=== PATIENT | male | born 2000 | race Caucasian/White ===

== ENCOUNTER 2024-07-22 16:32 | Emergency (ER) | payer BC ==
[~2024-07-22] VITALS: Ht 182.9 cm; Wt 65.8 kg
[2024-07-22 16:44] VITALS: TEMP 98.7
[2024-07-22] MEDS: KETOROLAC TROMETHAMINE 30 MG/ML VIAL IM STA (17:25)
[2024-07-22 17:38] LABS: BASOPHILS % 0.7 % (0.0-1.0); EOSINOPHILS # (AUTO) 0.1 (0.0-0.4); EOSINOPHILS % 1.2 % (0.0-6.0); HEMATOCRIT 42.5 % (38.2-49.6); HEMOGLOBIN 14.7 g/dL (14.0-18.0); LYMPHOCYTES # (AUTO) 0.8 (1.0-3.2); LYMPHOCYTES % 20.2 % (18.0-39.1); MEAN CORPUSCULAR HEMOGLOBIN 32.2 pg (28-32); MEAN CORPUSCULAR HGB CONC 34.6 g/dL (31-35); MONOCYTES # (AUTO) 0.3 (0.2-0.8); MONOCYTES % 7.7 % (4.4-11.3); NEUTROPHILS # (AUTO) 2.9 (2.1-6.9); NEUTROPHILS % 68.8 % (38.7-80.0); PLATELET COUNT 243 x10e3/uL (140-360); RED BLOOD COUNT 4.57 x10e6/uL (4.3-5.7); RED CELL DISTRIBUTION WIDTH 11.7 % (11.7-14.4); WHITE BLOOD COUNT 4.15 x10e3/uL (4.8-10.8)
[2024-07-22 17:59] LABS: ALBUMIN/GLOBULIN RATIO 1.9 (0.8-2.0); ANION GAP 16.6 mmol/L (8-16); BILIRUBIN,TOTAL 0.9 mg/dL (0.2-1.2); CALCIUM 9.6 mg/dL (8.4-10.2); CREATININE, SERUM 0.95 mg/dL (0.72-1.25); POTASSIUM 3.6 mmol/L (3.5-5.1); TOTAL PROTEIN 7.6 g/dL (6.5-8.1)
[2024-07-22 18:00] VITALS: PULSE 70; RESP 18; O2SAT 99
[2024-07-22] MEDS ORDERED: NAPROXEN250 MG PO (18:00)
[2024-07-22 18:05] LABS: TROPONIN I 0.009 ng/mL (0-0.300)
== END 2024-07-22 18:14 | disposition home or self-care (01) ==
LOC: ER 16:39
DX: M25.512 Pain in left shoulder (principal); M25.511 Pain in right shoulder; R73.03 Prediabetes; R94.31 Abnormal electrocardiogram [ECG] [EKG]
CPT/HCPCS: 36415; 71045; 73030; 80053; 84484; 85025; 85379; 93005; 99284; J1885